=== PATIENT | female | born 2000 | race African-American/Black ===

== ENCOUNTER 2018-07-07 18:03 | Emergency (ER) | payer OTHER ==
[~2018-07-07] VITALS: Ht 170.2 cm; Wt 74.8 kg
[~2018-07-07 18:03] MED LIST: CLARITIN
[2018-07-07] MEDS ORDERED: SINGULAIR 10 MG10 M1 PO (18:16)
[2018-07-07] MEDS ORDERED: VENTOLIN HFA 1818 GM INH (18:17)
[2018-07-07 18:38] VITALS: BP 135/77
== END 2018-07-07 18:36 | disposition home or self-care (01) ==
LOC: M.ERS 18:03
DX: S61.412A Laceration without foreign body of left hand, initial encounter (principal); Z88.1 Allergy status to other antibiotic agents; X58.XXXA Exposure to other specified factors, initial encounter; Y93.89 Activity, other specified; Y92.89 Other specified places as the place of occurrence of the external cause; Y99.8 Other external cause status

== ENCOUNTER 2018-07-17 16:52 | Emergency (ER) | payer OTHER ==
[~2018-07-17] VITALS: Ht 170.2 cm; Wt 74.8 kg
[~2018-07-17 16:52] MED LIST changes: +SINGULAIR 10 MG10 M1 PO; +VENTOLIN HFA 1818 GM INH
[2018-07-17 17:30] VITALS: BP 131/65
== END 2018-07-17 17:36 | disposition home or self-care (01) ==
LOC: M.ERS 16:52
DX: S61.412D Laceration without foreign body of left hand, subsequent encounter (principal); X58.XXXD Exposure to other specified factors, subsequent encounter; J45.909 Unspecified asthma, uncomplicated; Z88.1 Allergy status to other antibiotic agents